=== PATIENT | female | born 1995 | race Caucasian/White ===

== ENCOUNTER 2020-09-28 19:02 | Emergency (ER) | payer OTHER ==
[~2020-09-28] VITALS: Ht 160 cm; Wt 68.0 kg
[2020-09-28 19:07] VITALS: BP 144/83
--- NOTE | 2020-09-28 19:10 | NUR ---
25 y/o female presented to ED c/o BL periorbital swelling s/p allergic reaction to new guinea pig. Pt denies any nausea, SOB , throat swelling or chest pain. Pt oxygen level 100% , 80HR. RR even and unlabored. Observed swelling and watery discharge in BL eyes. Pt states she took 2 allergy pills but is unsure what type of pills. Pt resting in bed, locked and in lowest position, HOB elevated, side rail x1. VSS. No acute distress noted. pmh: denies ax: cats
--- NOTE | 2020-09-28 19:23 | NUR ---
Gave report to NNEKA Jackson, transfer of care at this time.
--- NOTE | 2020-09-28 19:23 | NUR ---
Report received from Parker Olea for continuation of care.
[2020-09-28] MEDS ORDERED: diphenhydrAMINE 50 MG CAP PO ONE (20:20)
[2020-09-28] MEDS ORDERED: FAMOTIDINE 20 MG TAB PO ONE (20:20)
[2020-09-28] MEDS ORDERED: FAMO40TA12 PO (21:00)
[2020-09-28] MEDS ORDERED: CETI10TA81 PO (21:00)
[2020-09-28] MEDS ORDERED: [UNRECOGNIZED DRUG - CODE] OP (21:00)
[2020-09-28] MEDS ORDERED: prednisoLONE 1% OP 5 ML BTL OP SCH (21:00)
[2020-09-28 21:13] VITALS: BP 144/83
--- NOTE | 2020-09-28 21:13 | NUR ---
Patient discharged with v/s stable. Written and verbal after care instructions given and explained. Patient alert, oriented and verbalized understanding of instructions. Ambulatory with steady gait. All questions addressed prior to discharge. ID band removed. Patient advised to follow up with PMD. Rx of cetirizine , famotidine, predniolone given. Patient educated on indication of medication including possible reaction and side effects. Opportunity to ask questions provided and answered.
== END 2020-09-28 21:13 | disposition home or self-care (01) ==
LOC: MED 19:02
DX: J30.81 Allergic rhinitis due to animal (cat) (dog) hair and dander (principal); H11.423 Conjunctival edema, bilateral; T78.49XA Other allergy, initial encounter; X58.XXXA Exposure to other specified factors, initial encounter
CPT/HCPCS: 99284; Q0163

== ENCOUNTER 2021-07-11 19:01 | Emergency (ER) | payer MEDICAID, OTHER ==
[~2021-07-11 19:01] MED LIST: CETI10TA81 PO; FAMO40TA12 PO; [UNRECOGNIZED DRUG - CODE] OP
--- NOTE | 2021-07-11 19:15 | NUR ---
CALLED TO TRIAGE, NO ANSWER
--- NOTE | 2021-07-11 19:31 | NUR ---
CALLED FOR PT IN LOBBY AND OUTSIDE FOR TRIAGE, NO ANSWER.
--- NOTE | 2021-07-11 20:02 | NUR ---
PER ALETHEA, LWBS 2003
== END 2021-07-11 20:03 | disposition left against medical advice (07) ==
LOC: MED 19:01
DX: M79.676 Pain in unspecified toe(s) (principal); Z53.21 Procedure and treatment not carried out due to patient leaving prior to being seen by health care provider

== ENCOUNTER 2021-07-12 18:22 | Emergency (ER) | payer MEDICAID ==
[~2021-07-12] VITALS: Ht 160 cm; Wt 72.1 kg
[2021-07-12 18:41] VITALS: BP 152/87
[2021-07-12] MEDS ORDERED: IBUPROFEN 600 MG TAB PO ONE (19:10)
--- NOTE | 2021-07-12 19:15 | NUR ---
1ST CALL FOR PT WITH NO ANSWER.
--- NOTE | 2021-07-12 19:38 | NUR ---
2ND CALL FOR PATIENT WITH NO ANSWER.
--- NOTE | 2021-07-12 19:47 | NUR ---
CALLED PT BACK FOR MEDICATION, NO ANSWER.
--- NOTE | 2021-07-12 20:00 | NUR ---
PT CALLED IN LOBBY AND OUTSIDE WITH NO ANSWER. PT CALLED ON CELLPHONE AND WENT STRIAGHT TO [employer]. PT ELOPED FROM FACILTY AT THIS TIME.
== END 2021-07-12 20:00 | disposition left against medical advice (07) ==
LOC: MED 18:22
DX: S99.921A Unspecified injury of right foot, initial encounter (principal); R03.0 Elevated blood-pressure reading, without diagnosis of hypertension; Z79.899 Other long term (current) drug therapy; W20.8XXA Other cause of strike by thrown, projected or falling object, initial encounter; Y93.89 Activity, other specified; Y92.89 Other specified places as the place of occurrence of the external cause; Y99.8 Other external cause status
CPT/HCPCS: 99281

== ENCOUNTER 2023-08-08 11:24 | Emergency (ER) | payer MEDICAID, OTHER ==
[~2023-08-08] VITALS: Ht 157.5 cm; Wt 72.6 kg
[2023-08-08 11:32] VITALS: BP 114/88; PULSE 114; RESP 16; TEMP 101.5; O2SAT 98
[2023-08-08] MEDS: ACETAMINOPHEN 325 MG TAB PO ONE (12:16)
[2023-08-08] MEDS: IBUPROFEN 600 MG TAB PO ONE (12:17)
[2023-08-08] MEDS ORDERED: BENZ-300 PO (12:25)
[2023-08-08] MEDS ORDERED: PSEU-250 PO (12:25)
[2023-08-08] MEDS ORDERED: IBUP-2213 PO (12:25)
[2023-08-08 12:28] VITALS: O2SAT 98
[2023-08-08 12:42] VITALS: TEMP 100
[2023-08-08] MEDS ORDERED: NIRM1TAB9 PO (13:24)
[2023-08-08 13:33] LABS: FLU A ANTIGEN negative (NEGATIVE); FLU B ANTIGEN negative (NEGATIVE)
== END 2023-08-08 12:42 | disposition home or self-care (01) ==
LOC: MED 11:24
DX: U07.1 COVID-19 (principal); Z79.899 Other long term (current) drug therapy
CPT/HCPCS: 99283